=== PATIENT | female | born 1985 | race Caucasian/White ===

== ENCOUNTER 2016-11-30 20:53 | Emergency (ER) | payer OTHER ==
[2016-12-01 00:08] VITALS: BP 129/86
== END 2016-12-01 00:08 | disposition left against medical advice (07) ==
LOC: ED 20:53
DX: Z53.21 Procedure and treatment not carried out due to patient leaving prior to being seen by health care provider (principal)

== ENCOUNTER 2017-10-06 17:46 | Emergency (ER) | payer OTHER ==
[~2017-10-06] VITALS: Ht 160 cm; Wt 97.1 kg
[2017-10-06 18:10] VITALS: Ht 160 cm; Wt 97.1 kg
[2017-10-06 21:01] VITALS: BP 136/88
== END 2017-10-06 21:01 | disposition home or self-care (01) ==
LOC: ED 17:46
DX: R51 Headache (principal); I10 Essential (primary) hypertension; M54.2 Cervicalgia
CPT/HCPCS: 82962; J0780; J1885